=== PATIENT | female | born 2000 | race Caucasian/White ===

== ENCOUNTER 2018-03-24 04:19 | Emergency (ER) | END 2018-03-24 07:42 | disposition home or self-care (01) ==

== ENCOUNTER 2018-05-18 07:26 | Inpatient (IN) | END 2018-05-19 18:41 | disposition home or self-care (01) | DRG 832 ==

== ENCOUNTER 2018-06-23 01:10 | Outpatient (CLI) | END 2018-06-23 05:30 | disposition home or self-care (01) ==

== ENCOUNTER 2018-09-04 06:38 | Emergency (ER) | payer OTHER ==
[~2018-09-04] VITALS: Ht 149.9 cm; Wt 58.1 kg
[~2018-09-04 06:38] MED LIST: PREN-6 PO
[2018-09-04 06:43] VITALS: BP 108/56; PULSE 82; RESP 16; Ht 149.9 cm; Wt 58.1 kg
[2018-09-04] MEDS ORDERED: LIDOCAINE/MYLANTA 40 ML BTL PO STA (07:08)
[2018-09-04] MEDS ORDERED: ONDANSETRON (ODT) 4 MG TAB ODT STA (07:08)
[2018-09-04] MEDS ORDERED: KETOROLAC 30 MG INJ IM STA (07:08)
[2018-09-04] MEDS ORDERED: CIPR500T4 PO (08:45)
--- NOTE | 2018-09-04 08:49 | ERD ---
ER Documentation Chief Complaint Chief Complaint upper abdominal pain radiating to the back this morning ROS All systems reviewed and are negative except as per history of present illness. Medications Home Meds Active Scripts Ciprofloxacin Hcl* (Ciprofloxacin Hcl*) 500 Mg Tablet, 500 MG PO BID for uti for 5 Days, #10 TAB Prov:JACOB NUR DO 09/04/18 Reported Medications Vits #93-Iron Fum-FA ( Formula) 1 Each Tablet, 1 TAB PO DAILY, TAB 05/18/18 Allergies Allergies: Coded Allergies: No Known Allergy (Unverified , 09/04/18) PMhx/Soc History of Surgery: No Anesthesia Reaction: No Hx Neurological Disorder: No Hx Respiratory Disorders: No Hx Cardiac Disorders: No Hx Psychiatric Problems: No Hx Miscellaneous Medical Probl: No Hx Alcohol Use: No Hx Substance Use: No Hx Tobacco Use: No Physical Exam Vitals Vital Signs Date Temp Pulse Resp B/P (MAP) Pulse Ox O2 O2 Flow FiO2 Time Delivery Rate 09/04/18 97.8 82 16 108/56 98 06:43 (73) Physical Exam Const: No acute distress Head: Atraumatic Eyes: Normal Conjunctiva ENT: Normal External Ears, Nose and Mouth. Neck: Full range of motion. No meningismus. Resp: Clear to auscultation bilaterally Cardio: Regular rate and rhythm, no murmurs Abd: Soft, non tender, non distended. Normal bowel sounds Skin: No petechiae or rashes Back: No midline or flank tenderness Ext: No cyanosis, or edema Neur: Awake and alert Psych: Normal Mood and Affect Result Diagram: 09/04/1872109/04/18 07 Results 24 hrs Laboratory Tests Test 09/04/18 07:22 09/04/18 07:23 09/04/18 07:25 White Blood Count 8.5 10^3/ul Red Blood Count 4.65 10^6/ul Hemoglobin 11.7 g/dl Hematocrit 38.7 % Mean Corpuscular Volume 83.2 fl Mean Corpuscular Hemoglobin 25.2 pg Mean Corpuscular 30.2 g/dl Hemoglobin Concent Red Cell Distribution Width 17.1 % Platelet Count 251 10^3/UL Mean Platelet Volume 9.5 fl Immature Granulocytes % 0.400 % Neutrophils % 69.9 % Lymphocytes % 17.2 % Monocytes % 8.3 % Eosinophils % 3.6 % Basophils % 0.6 % Nucleated Red Blood Cells % 0.0 /100WBC Immature Granulocytes # 0.030 10^3/ul Neutrophils # 6.0 10^3/ul Lymphocytes # 1.5 10^3/ul Monocytes # 0.7 10^3/ul Eosinophils # 0.3 10^3/ul Basophils # 0.1 10^3/ul Nucleated Red Blood Cells # 0.0 10^3/ul Sodium Level 144 mmol/L Potassium Level 4.0 mmol/L Chloride Level 107 mmol/L Carbon Dioxide Level 27 mmol/L Anion Gap 10 Blood Urea Nitrogen 10 mg/dl Creatinine 0.45 mg/dl Est Glomerular Filtrat > 60 mL/min Rate mL/min Glucose Level 96 mg/dl Calcium Level 9.5 mg/dl Total Bilirubin 1.0 mg/dl Direct Bilirubin 0.00 mg/dl Indirect Bilirubin 1.0 mg/dl Aspartate Amino Transf (AST/SGOT) 245 IU/L Alanine 90 IU/L Aminotransferase (ALT/SGPT) Alkaline Phosphatase 172 IU/L Total Protein 7.3 g/dl Albumin 3.9 g/dl Globulin 3.40 g/dl Albumin/Globulin Ratio 1.14 Lipase 79 U/L Urine Color YELLOW Urine Clarity SLIGHTLY CLOUDY Urine pH 8.0 Urine Specific [place] 1.019 Urine Ketones NEGATIVE mg/dL Urine Nitrite NEGATIVE mg/dL Urine Bilirubin NEGATIVE mg/dL Urine Urobilinogen 2+ mg/dL Urine Leukocyte Esterase 2+ Marge/ul Urine Microscopic RBC 1 /HPF Urine Microscopic WBC 25 /HPF Urine Squamous Epithelial Cells FEW /HPF Urine Bacteria FEW /HPF Urine Hemoglobin NEGATIVE mg/dL Urine Glucose NEGATIVE mg/dL Urine Total Protein NEGATIVE mg/dl POC Beta HCG, Qualitative NEGATIVE Current Medications Medications Dose Sig/Jelena Start Time Status Last (Trade) Ordered Route PRN Stop Time Admin Dose Reason Admin 40 ml ONCE STAT 09/04/18 DC 09/04/18 Miscellaneous PO 07:08 09/04/18 07:25 Medication 07:10 (Gi Cocktail (2)) Ondansetron 4 mg ONCE STAT 09/04/18 DC 09/04/18 HCl (Zofran ODT 07:08 09/04/18 07:25 Odt) 07:10 Ketorolac 30 mg ONCE STAT 09/04/18 DC 09/04/18 Tromethamine IM 07:08 09/04/18 07:27 (Toradol) 07:10 Departure Diagnosis: Primary Impression: UTI (urinary tract infection) Urinary tract infection type: acute cystitis Hematuria presence: without hematuria Qualified Codes: N30.00 - Acute cystitis without hematuria Additional Impression: Cholelithiasis Cholelithiasis location: gallbladder Cholecystitis presence: without cholecystitis Biliary obstruction: without biliary obstruction Qualified Codes: K80.20 - Calculus of gallbladder without cholecystitis without obstruction Condition: Fair Patient Instructions: Understanding Urinary Tract Infections (UTIs) Referrals: [facility] YOU HAVE RECEIVED A MEDICAL SCREENING EXAM AND THE RESULTS INDICATE THAT YOU DO NOT HAVE A CONDITION THAT REQUIRES URGENT TREATMENT IN THE EMERGENCY DEPARTMENT. FURTHER EVALUATION AND TREATMENT OF YOUR CONDITION CAN WAIT UNTIL YOU ARE SEEN IN YOUR DOCTORS OFFICE WITHIN THE NEXT 1-2 DAYS. IT IS YOUR RESPONSIBILITY TO MAKE AN APPOINTMENT FOR FOLOW-UP CARE. IF YOU HAVE A PRIMARY DOCTOR --you should call your primary doctor and schedule an appointment IF YOU DO NOT HAVE A PRIMARY DOCTOR YOU CAN CALL OUR PHYSICIAN REFERRAL HOTLINE AT IF YOU CAN NOT AFFORD TO SEE A PHYSICIAN YOU CAN CHOSE FROM THE FOLLOWING [facility] CLINICS [facility] [address] [facility]. [facility] [address] [facility]. [facility] [address] [facility] [facility] [address] [facility]. [facility] [address] [facility]. [facility]. [address] Additional Instructions: Call your primary care doctor TOMORROW for an appointment during the next 1-2 days.See the doctor sooner or return here if your condition worsens before your appointment time. JACOB NUR DO Sep 04, 2018 08:49
== END 2018-09-04 08:55 | disposition home or self-care (01) ==
LOC: FTE 06:38
DX: N30.00 Acute cystitis without hematuria (principal); K80.20 Calculus of gallbladder without cholecystitis without obstruction
CPT/HCPCS: 36415; 76705; 80053; 81001; 81025; 83690; 85025; 96372; J1885; Z7502; Z7610

== ENCOUNTER 2019-01-17 00:38 | Emergency (ER) | payer SELFPAY ==
[~2019-01-17] VITALS: Ht 149.9 cm; Wt 61.0 kg
[~2019-01-17 00:38] MED LIST changes: +CIPR500T4 PO; +IBUP-1542 PO; +TRAM50TA2 PO
[2019-01-17 00:44] VITALS: Ht 149.9 cm; Wt 61.0 kg
[2019-01-17] MEDS ORDERED: KETOROLAC 30 MG INJ IV STA (01:44)
[2019-01-17] MEDS ORDERED: SOD CHLORIDE 0.9% 1,000 ML IV ONE (02:00)
[2019-01-17] MEDS ORDERED: morphine 2 MG INJ IV STA (04:30)
--- NOTE | 2019-01-17 05:13 | ERD ---
ER Documentation Chief Complaint Chief Complaint abdominal pain HPI History of Present Illness: 18-year-old female who denies a past medical history coming in today due to complaint of right upper quadrant abdominal pain that radiates to her right upper back. Patient reports that she has had an episode like this approximately 3-minute months ago but it was not as severe. Patient denies any other gastrointestinal or genitourinary symptoms. Denies any other associated symptoms. At home pharmacological/nonpharmacological treatment for symptoms: Ibuprofen 200 mg Denies social concerns; Denies recent foreign travel ROS All systems reviewed and are negative except as per history of present illness. Medications Home Meds Active Scripts Tramadol HCl (Tramadol HCl) 50 Mg Tablet, 50 MG PO Q8 PRN for MODERATE SEVERE PAIN, #10 TAB Prov:XIMENA HUDSON NP 01/17/19 Ibuprofen* (Motrin*) 600 Mg Tab, 600 MG PO Q6H PRN for PAIN AND OR ELEVATED TEMP, #30 TAB Prov:XIMENA HUDSON NP 01/17/19 Ciprofloxacin Hcl* (Ciprofloxacin Hcl*) 500 Mg Tablet, 500 MG PO BID for uti for 5 Days, #10 TAB Prov:JACOB NUR DO 09/04/18 Reported Medications Vits #93-Iron Fum-FA ( Formula) 1 Each Tablet, 1 TAB PO DAILY, TAB 05/18/18 Allergies Allergies: Coded Allergies: No Known Allergy (Unverified , 01/17/19) PMhx/Soc History of Surgery: No Anesthesia Reaction: No Hx Neurological Disorder: No Hx Respiratory Disorders: No Hx Cardiac Disorders: No Hx Psychiatric Problems: No Hx Miscellaneous Medical Probl: No Hx Alcohol Use: No Hx Substance Use: No Hx Tobacco Use: No Smoking Status: Never smoker FmHx Family History: No diabetes, No coronary disease Physical Exam Vitals Vital Signs Date Temp Pulse Resp B/P (MAP) Pulse Ox O2 O2 Flow FiO2 Time Delivery Rate 01/17/19 97.9 73 16 107/55 98 00:44 (72) Physical Exam Const: No acute distress, afebrile, physical signs of pain includes grimacing and patient bent over Head: Atraumatic Eyes: Normal Conjunctiva ENT: Normal External Ears, Nose and Mouth. Neck: Full range of motion. No meningismus. Resp: Clear to auscultation bilaterally Cardio: Regular rate and rhythm, no murmurs Abd: Soft, right upper quadrant tenderness, non distended. No guarding, no masses, no rigidity. Bowel sounds present. Skin: No petechiae or rashes Back: No midline or flank tenderness Ext: No cyanosis, or edema Neur: Awake and alert x3, speaking in clear sentences, no focal deficits or facial asymmetry Psych: Normal Mood and Affect Result Diagram: 01/17/19 0310 01/17/19 0310 Results 24 hrs Laboratory Tests Test 01/17/19 02:09 01/17/19 02:13 01/17/19 03:10 Urine Color LONI Urine Clarity SLIGHTLY CLOUDY Urine pH 6.0 Urine Specific [place] 1.034 Urine Ketones NEGATIVE mg/dL Urine Nitrite NEGATIVE mg/dL Urine Bilirubin 1+ mg/dL Urine Urobilinogen 2+ mg/dL Urine Leukocyte Esterase NEGATIVE Marge/ul Urine Microscopic RBC 1 /HPF Urine Microscopic WBC 4 /HPF Urine Squamous Epithelial Cells FEW /HPF Urine Mucus MANY /HPF Urine Hemoglobin NEGATIVE mg/dL Urine Glucose NEGATIVE mg/dL Urine Total Protein 1+ mg/dl POC Beta HCG, Qualitative NEGATIVE White Blood Count 11.5 10^3/ul Red Blood Count 4.88 10^6/ul Hemoglobin 13.1 g/dl Hematocrit 42.0 % Mean Corpuscular Volume 86.1 fl Mean Corpuscular Hemoglobin 26.8 pg Mean Corpuscular 31.2 g/dl Hemoglobin Concent Red Cell Distribution Width 15.7 % Platelet Count 287 10^3/UL Mean Platelet Volume 11.1 fl Immature Granulocytes % 0.700 % Neutrophils % 72.1 % Lymphocytes % 13.8 % Monocytes % 9.1 % Eosinophils % 3.7 % Basophils % 0.6 % Nucleated Red Blood Cells % 0.0 /100WBC Immature Granulocytes # 0.080 10^3/ul Neutrophils # 8.3 10^3/ul Lymphocytes # 1.6 10^3/ul Monocytes # 1.0 10^3/ul Eosinophils # 0.4 10^3/ul Basophils # 0.1 10^3/ul Nucleated Red Blood Cells # 0.0 10^3/ul Sodium Level 145 mmol/L Potassium Level 4.2 mmol/L Chloride Level 109 mmol/L Carbon Dioxide Level 25 mmol/L Anion Gap 11 Blood Urea Nitrogen 13 mg/dl Creatinine 0.45 mg/dl Est Glomerular Filtrat > 60 mL/min Rate mL/min Glucose Level 90 mg/dl Calcium Level 9.2 mg/dl Total Bilirubin 1.3 mg/dl Direct Bilirubin 0.00 mg/dl Indirect Bilirubin 1.3 mg/dl Aspartate Amino 154 IU/L Transf (AST/SGOT) Alanine 63 IU/L Aminotransferase (ALT/SGPT) Alkaline Phosphatase 128 IU/L Total Protein 8.0 g/dl Albumin 4.3 g/dl Globulin 3.70 g/dl Albumin/Globulin Ratio 1.16 Lipase 84 U/L Current Medications Medications Dose Sig/Jelena Start Time Status Last (Trade) Ordered Route PRN Stop Time Admin Dose Reason Admin Sodium 1,000 ml @ Q1H ONCE 01/17/19 DC 01/17/19 Chloride 1,000 mls/hr IV 02:00 02:24 01/17/19 02:59 Ketorolac 30 mg ONCE STAT 01/17/19 DC 01/17/19 Tromethamine IV 01:44 02:24 (Toradol) 01/17/19 01:47 Morphine 2 mg ONCE STAT 01/17/19 DC 01/17/19 Sulfate IV 04:30 04:37 (morphine) 01/17/19 04:33 Procedures/MDM ED COURSE: ED course includes a thorough examination and history. The patient was stable throughout ED course. I kept the patient and/or family informed of laboratory and diagnostic imaging results throughout the ED course. LABS: CBC: no e/o of systemic infection or severe anemia; mild leukocytosis 11.5 CMP: no e/o severe acidosis, alkalosis, renal failure, diabetic ketoacidosis, liver disease; mild elevation in bilirubin, AST, alkaline phosphatase Urine negative Lipase within normal limits Urinalysis positive for 1+ bilirubin, 2+ urobilinogen, no infection, hemoconcentration MEDICATIONS GIVEN IN ER: IV NS, ketorolac Patient tolerated medication well with no adverse reactions. Patient reported improvement in pain. Patient reassessment at 0425: Only mild decrease in pain. Patient reports pain is out of 10. Will order morphine before discharge. DIAGNOSTIC IMAGING: Read by radiologist. Abdomen x-ray: IMPRESSION: No acute findings. No renal or potential ureteral calcifications identified. RPTAT: [facility] Physician Jessica Date Time Electronically viewed and signed by Physician Jessica on 01/17/2019 03:14 Gallbladder ultrasound: IMPRESSION: 1. Multiple small mobile gallstones. No wall thickening or pericholecystic fluid to indicate acute inflammation. 2. Common bile duct slightly dilated at 7 mm diameter, similar compared with previous exam of 09/04/2018. No stones identified within the duct. Consider further evaluation with MRCP if clinically warranted. RPTAT: [facility] Physician Jessica Date Time Electronically viewed and signed by Physician Jessica on 01/17/2019 03:15 PROCEDURES: None. MEDICAL DECISION MAKING: Low suspicion for life-threatening medical emergency. Low suspicion for acute abdominal emergency including cholecystitis. Otherwise healthy patient presenting with constellation of symptoms likely representing right upper quadrant pain, gallstones, elevated AST, elevated bilirubin as characterized by history, physical exam findings, imaging findings, lab findings. Patient reassessment at 0425: Orders placed for additional pain medication. Physician consultation with ED attending . History, physical labs, imaging reviewed. Agrees that there are no acute abnormalities that requires hospitalization. Patient to follow-up outpatient with primary care regarding test results. Patient reassessment @ 0505: Patient hemodynamically stable. No respiratory distress, otherwise relatively well appearing and nontoxic. Disposition given. Patient educated on diagnoses, prescriptions, follow-up care, return precautions. Strict return precautions given for worsening condition; questions answered discharge. Patient verbalizes understanding of discharge instructions. PRESCRIPTIONS FOR HOME: Ibuprofen, tramadol DISPOSITION: DISCHARGE At this time, patient is stable for discharge and outpatient management. I have instructed the patient to follow-up with his/her primary care physician in 1-2 days. I have discussed with the patient the possibility of needing to see a specialist for further workup and imaging studies if symptoms persist. I have instructed the patient to promptly return to the ER for any new or worsening symptoms including increased pain, fever, nausea, vomiting, weakness or LOC. The patient and/or family expressed understanding of and agreement with this plan. All questions were answered. Home care instructions were provided. DISCLAIMER: Inadvertent spelling and grammatical errors are likely due to EHR/dictation software use and do not reflect on the overall quality of patient care. Also, please note that the electronic time recorded on this note does not necessarily reflect the actual time of the patient encounter. Departure Diagnosis: Primary Impression: RUQ abdominal pain Additional Impressions: Gallstones Elevated AST (SGOT) Bilirubin in urine Condition: Stable Patient Instructions: Treating Gallstones, Total Bilirubin (Blood) Referrals: PENDING SALE TO [facility] YOU HAVE RECEIVED A MEDICAL SCREENING EXAM AND THE RESULTS INDICATE THAT YOU DO NOT HAVE A CONDITION THAT REQUIRES URGENT TREATMENT IN THE EMERGENCY DEPARTMENT. FURTHER EVALUATION AND TREATMENT OF YOUR CONDITION CAN WAIT UNTIL YOU ARE SEEN IN YOUR DOCTORS OFFICE WITHIN THE NEXT 1-2 DAYS. IT IS YOUR RESPONSIBILITY TO MAKE AN APPOINTMENT FOR FOLOW-UP CARE. IF YOU HAVE A PRIMARY DOCTOR --you should call your primary doctor and schedule an appointment IF YOU DO NOT HAVE A PRIMARY DOCTOR YOU CAN CALL OUR PHYSICIAN REFERRAL HOTLINE AT IF YOU CAN NOT AFFORD TO SEE A PHYSICIAN YOU CAN CHOSE FROM THE FOLLOWING [facility] [address] [facility] [facility] [address] [facility]. [facility] [address] [facility] [address] [facility] [facility] [address] [facility]. [facility]. [address] [facility]. [facility] YOU HAVE RECEIVED A MEDICAL SCREENING EXAM AND THE RESULTS INDICATE THAT YOU DO NOT HAVE A CONDITION THAT REQUIRES URGENT TREATMENT IN THE EMERGENCY DEPARTMENT. FURTHER EVALUATION AND TREATMENT OF YOUR CONDITION CAN WAIT UNTIL YOU ARE SEEN IN YOUR DOCTORS OFFICE WITHIN THE NEXT 1-2 DAYS. IT IS YOUR RESPONSIBILITY TO MAKE AN APPOINTMENT FOR FOLOW-UP CARE. IF YOU HAVE A PRIMARY DOCTOR --you should call your primary doctor and schedule and appointment IF YOU DO NOT HAVE A PRIMARY DOCTOR YOU CAN CALL OUR PHYSICIAN REFERRAL HOTLINE AT . IF YOU CAN NOT AFFORD TO SEE A PHYSICIAN YOU CAN CHOSE FROM THE FOLLOWING [facility] INSTITUTIONS: [facility] [address] [place] [address] [facility] [address] [place] [address] MERGED WITH [facility] + [facility] [address] [place] [address] Additional Instructions: Thank you very much for allowing us to participate in your care. Your health and safety is our top priority at [facility]. It is important to read all discharge instructions and education provided in your discharge packet. Call your primary care doctor TOMORROW for an appointment during the next 2-4 days and bring all the information and medications prescribed. Have prescriptions filled and follow precisely the directions on the label. If the symptoms get worse and your provider is unavailable, return to the Emergency Department immediately. XIMENA HUDSON NP Jan 17, 2019 05:13
[2019-01-17 05:17] VITALS: BP 99/58; PULSE 65; RESP 18
== END 2019-01-17 05:19 | disposition home or self-care (01) ==
LOC: FTE 00:38
DX: K80.20 Calculus of gallbladder without cholecystitis without obstruction (principal); R74.0 Nonspecific elevation of levels of transaminase and lactic acid dehydrogenase [LDH]; R82.2 Biliuria
CPT/HCPCS: 74019; 76705; 80053; 81001; 81025; 83690; 85025; 96361; 96374; 96375; 99285; J1885; J2270; J7030